=== PATIENT | male | born 1980 | race Caucasian/White ===

== ENCOUNTER 2025-04-02 17:05 | Emergency (ER) | payer OTHER, SELFPAY ==
[2025-04-02 17:21] VITALS: BP 145/90; PULSE 72; RESP 18; TEMP 36.6; O2SAT 100
[2025-04-02] MEDS: HYDROGEN PEROXIDE 3% TOPICAL SOLUTION 118 ML BOTTLE 30 ML IRRIGATION (17:29)
--- OUTSIDE RECORDS SUMMARY | 2025-04-02 17:30 | XMS_ITS | Clinical Summary ---
Author Organization [facility] Address [address] [place] [id number] Care Team Providers Care Clinical Provider Trainer Name Role Phone None, Provider MD Primary Care Provider Unavaila ble Allergies No known active allergies Medications No known medications Social History Tobacco Use Types Packs/Day Years Used Date Smoking Tobacco: Never Smokeless Tobacco: Never Alcohol Use Standard Drinks/Week Comments Yes 0 (1 standard drink = 0.6 oz pur e alcohol) Sex and Gender Information Value Date Recorded Sex Assigned at Not on file Legal Sex Male 4:16 PM CDT Gender Identity Not on file Sexual Orientation Not on file Last Filed Vital Signs Vital Sign Reading Time Taken Comments Blood Pressure 136/89 03/27/2019 8:41 AM MOBILE PATROL OFFICER Pulse 79 03/27/2019 8:41 AM MOBILE PATROL OFFICER Temperature 36.9 C (98.4 F) 03/27/2019 8:41 AM MOBILE PATROL OFFICER Respiratory Rate 20 03/27/2019 8:41 AM MOBILE PATROL OFFICER Oxygen Saturation 97% 03/27/2019 8:41 AM MOBILE PATROL OFFICER Inhaled Oxygen Concentration - - Weight 77.1 kg (170 lb) 03/27/2019 8:41 AM MOBILE PATROL OFFICER Height 177.8 cm (5' 10) 03/27/2019 8:41 AM MOBILE PATROL OFFICER Body Mass Index 24.39 03/27/2019 8:41 AM MOBILE PATROL OFFICER Plan of Treatment Health Maintenance Due Date Last Done Comments Annual Physical 12/31/1983 Hepatitis C 1998 DTaP, Tdap and Td Vaccines ( 1 - Tdap) 12/31/1999 Hepatitis B Vaccines (1 of 3 - 19+ 3-dose series) 12/31/1999 HPV Vaccines (1 - 3-dose SCD M series) 12/31/2007 COVID-19 Vaccine (2024-2 6 season) 2025 Influenza Adult (#1) 2025 Hepatitis A Vaccines Aged Out No long er eligible based on patient's age to complete this topic Meningococcal B Vaccine Aged Out No l onger eligible based on patient's age to complete this topic Meningococcal Vaccine Aged Out No amauri tonia eligible based on patient's age to complete this topic Pneumococcal Vaccine: Pediat rics (0 to 5 Years) and At-Risk Patients (6 to 49 Years) Aged Out No longer eligible b ased on patient's age to complete this topic RSV Immunizations Under 20 Months Aged Out No longer eligible based on patient's age to complete this topic Insurance [employer] [facility] Care Teams Clinical Provider Trainer Relationship Specialty Start Date End Date None, ProviderMD PCP - General 03/27/19
--- OUTSIDE RECORDS SUMMARY | 2025-04-02 17:30 | XMS_ITS | Clinical Summary ---
Author Organization [facility] Address [address] [place] [address] Care Team Providers Care Assisted Living Administrator Name Role Phone No, Physician Primary Care Provider [phone] Allergies No known active allergies Medications meloxicam (MOBIC) 15 mg tablet Take 1 tablet (15 mg total) by mouth daily 30 tablet 06/17/2022 Active Active Problems Problem Noted Date Diagnosed Date Patellofemoral chondrosis of right knee 06/17/19 23 S/P ACL reconstruction 06/17/2022 Injury of right knee 06/15/2022 Acute pain of right knee 06/15/2022 Social History Tobacco Use Types Packs/Day Years Used Date Smoking Tobacco: Never Passive Smoke Exposure: Never Smokeless Tobacco: Never Tobacco Cessation:Counseling Given: No Personal Safety Answer Date Recorded Getting School Help Needed Not on file 05/15 Sex and Gender Information Value Date Recorded Sex Assigned at Not on file Legal Sex Male 10:56 PM BUSINESS SUPPORT MANAGER Gender Identity Male 06/14/2022 8:10 PM BUSINESS SUPPORT MANAGER Sexual Orientation Not on file Last Filed Vital Signs Vital Sign Reading Time Taken Comments Blood Pressure - - Pulse - - Temperature - - Respiratory Rate - - Oxygen Saturation - - Inhaled Oxygen Concentration - - Weight 79.4 kg (175 lb) 06/15/2022 9:47 AM BUSINESS SUPPORT MANAGER Height 177.8 cm (5' 10) 06/15/2022 9:47 AM BUSINESS SUPPORT MANAGER Body Mass Index 25.11 06/15/2022 9:47 AM BUSINESS SUPPORT MANAGER Plan of Treatment Health Maintenance Due Date Last Done Comments Depression Screening 1980 Hepatitis C Screening 1980 Varicella Vaccines (1 of 2 - 13+ 2-dose series) 1993 Hepatitis B Screening 1998 Regular Well Visit/Exam 18-64 1998 HPV Vaccines (1 - 3-dose SCD M series) 12/31/2007 DTaP/Tdap/Td Vaccine (2 - Td or Tdap) 11/06/2022 11/06/2012 Influenza Vaccine (#1) 2025 Pneumococcal vaccine <65 Aged Out No longer eligible based on patient's age to complete this topic [facility] [id number] [facility] [id number] Care Teams Assisted Living Administrator Relationship Specialty Start Date End Date No, Physician PCP - General 06/09/22
--- NOTE | 2025-04-02 17:47 | ED.EAR ---
HPI - Ear Problem General Chief complaint: Ear Stated complaint: R ear clogged Time Seen by Provider: 04/02/25 17:15 Source: patient and RN notes reviewed Mode of arrival: ambulatory Limitations: no limitations History of Present Illness HPI Narrative: 44-year-old male patient presents Express Care complaining of bilateral ears clogged for approximately 4 days. Patient tried [id number] debrox without relief. Patient denies any other upper respiratory symptoms, fevers, body aches, chills, dizziness, any other symptoms Related Data Home Medications ?Medication ?Instructions ?Recorded ?Confirmed ?Last Taken ?Type No Home Medications 04/02/25 04/02/25 Unknown History Allergies Allergy/AdvReac Type Severity Reaction Status Date / Time No Known Allergies Allergy Verified 04/02/25 17:21 Review of Systems Review of Systems: CONSTITUTIONAL: Denies fever, chills, or sweats. EYES: Denies visual changes, redness, or discharge. ENT: Denies rhinorrhea, congestion, sore throat, or otalgia. Positive for ear fullness. CARDIOVASCULAR: Denies chest pain, palpitations, or edema. RESPIRATORY: Denies cough or dyspnea. GASTROINTESTINAL: Denies abdominal pain, nausea, vomiting, or diarrhea. GENITOURINARY: Denies dysuria or hematuria. SKIN: Denies rash or itching. MUSCULOSKELETAL: Denies back pain, joint pain, or myalgia. NEUROLOGIC: Denies headache, numbness, or weakness. PSYCHIATRIC: Denies anxiety or depression. All other systems reviewed are negative, except as documented in HPI. PMFSH Comments At the time of my signature, I reviewed and agree with the nursing past medical, surgical, social, and family history. There is no relevant family history pertinent to the patient complaint. Exam Narrative: GENERAL: This is a well-nourished, well-developed adult, in no apparent distress. They are non ill-appearing, nontoxic appearing. HEAD: normocephalic, atraumatic. EYES: Sclera clear/white. Conjunctiva normal. Vision is grossly intact. Extraocular movements intact EARS: External ears normal, auditory canals with impacted cerumen bilaterally unable to visualize TMs., Hearing grossly intact. NOSE: External nose normal with no obvious nasal discharge, nasal turbinates without redness, no rhinorrhea. THROAT: Mucous membranes moist, posterior pharynx clear, without erythema or swelling. Uvula midline. NECK: Neck supple, non-tender without lymphadenopathy, masses or thyromegaly. CARDIOVASCULAR: Regular rate and rhythm without murmurs, gallops, or rubs. RESPIRATORY: Respiratory rate normal, respiratory effort nonlabored, no respiratory distress SKIN: warm, Dry, intact with no suspicious lesions or rash, good texture and turgor. NEURO: awake, alert, and oriented to person, place and time. There were no obvious focal neurologic abnormalities. EXTREMITIES: No joint tenderness, effusion, or edema noted. BACK: Nontender without deformity. No CVA tenderness. Course Course Emergency Course: Portions of this record may have been created with voice recognition software Level of Care: Express Care Visit Vital Signs Vital signs: Vital Signs Temperature 97.8 F 04/02/25 17:21 Pulse Rate 72 04/02/25 17:21 Respiratory Rate 18 04/02/25 17:21 Blood Pressure 145/90 H 04/02/25 17:21 Pulse Oximetry 100 04/02/25 17:21 Oxygen Delivery Room Air 04/02/25 17:21 Temperature 97.8 F 04/02/25 17:21 Pulse Rate 72 04/02/25 17:21 Respiratory Rate 18 04/02/25 17:21 Blood Pressure 145/90 H 04/02/25 17:21 Pulse Oximetry 100 04/02/25 17:21 Oxygen Delivery Room Air 04/02/25 17:21 Reviewed Procedures Ear Wax Removal Both Ears: Ear Wax Removal Date: 04/02/25 Ear Wax Removal Time: 17:30 Cerumenolytic Used: other (Small amount Hydrogen peroxide) Results: Re-examined: cerumen removed completely TM Examination: TM(s) intact, normal appearance Ear Canal Exam: atraumatic Patient Tolerated Procedure: well Complications: no problems Technique: ear canal irrigated and ear canal curetted Medical Decision Making MDM Narrative Medical decision making narrative: Successful removal of earwax to both ears. Advised patient to follow-up PCP. Patient reports significant improvement of symptoms. Discussed physical exam findings. Advised supportive measures and signs/symptoms to go to the ER. Pt is appropriate for outpt treatment and f/u. Differential Diagnosis Differential Diagnosis: Otitis media, otitis externa, earwax impaction. Vital Signs Vital Signs: Vital Signs Temperature 97.8 F 04/02/25 17:21 Pulse Rate 72 04/02/25 17:21 Respiratory Rate 18 04/02/25 17:21 Blood Pressure 145/90 H 04/02/25 17:21 Pulse Oximetry 100 04/02/25 17:21 Oxygen Delivery Room Air 04/02/25 17:21 Temperature 97.8 F 04/02/25 17:21 Pulse Rate 72 04/02/25 17:21 Respiratory Rate 18 04/02/25 17:21 Blood Pressure 145/90 H 04/02/25 17:21 Pulse Oximetry 100 04/02/25 17:21 Oxygen Delivery Room Air 04/02/25 17:21 Critical Care Time Critical Care Time Critical Care Time: No Discharge Plan Discharge Clinical Impression: Bilateral impacted cerumen Patient Disposition: Home Condition: Stable Instructions: Antibiotic Form Additional Instructions: The earwax was successfully removed at a both ears. Follow-up with your PCP in 3-5 days as needed. Stay hydrated. Avoid Q-tips in the ears. Patient Language: Vietnamese Prescriptions: No Action No Home Medications Follow-up/Referrals: PHYSICIAN,ACQUISITIONS ANALYST [Primary Care Provider, Internal Medicine] Time of Disposition: 17:44
== END 2025-04-02 17:49 | disposition home or self-care (01) ==
DX: H61.23 Impacted cerumen, bilateral (principal)
CPT/HCPCS: 69210; 99202; A9270; G0463